=== PATIENT | female | born 1990 | race Hispanic/Latino ===

== ENCOUNTER 2016-06-06 21:49 | Emergency (ER) | payer OTHER ==
[2016-06-06 21:57] VITALS: BP 108/78; PULSE 101; O2SAT 97
[2016-06-06] MEDS ORDERED: Albuterol-Ipratropium 3 mL Inhalation Solution NEB ONE (23:50)
[2016-06-06] MEDS ORDERED: predniSONE 20 mg Tablet PO ONE (23:50)
[2016-06-07 00:02] VITALS: PULSE 64; RESP 22; O2SAT 99
[2016-06-07 00:21] LABS: BASOPHILS % (AUTO) 0.2 % (0-3); EOSINOPHILS % (AUTO) 1.6 % (0-5); MONOCYTES % (AUTO) 6.9 % (4-12); Mean Corpuscular Hemoglobin 28.2 pg (27.0-35.0); Mean Corpuscular Volume 84.8 fL (81-100); NEUTROPHILS % (AUTO) 75.3 % (40-74); Platelet Count 242 bil/L (150-400)
--- NOTE | 2016-06-07 00:32 | ED.REPORT ---
HPI-URI / Cough / Cold Date of Service Jun 07, 2016 ED Provider: Jon Wylie DO Healthy 25-year-old female presents to the emergency department for evaluation of cough. Evidently she has had an incessant cough for the past week. The cough happens throughout the day but it seems a more severe at nighttime when she lies down flat. The cough has been dry however she is now producing sputum. She does not have a history of pulmonary emboli tuberculosis or pneumonia. Nursing Notes Stated Complaint: COUGH/FEELS CONGESTED Chief Complaint: Respiratory Complaints Nursing Notes Reviewed: Yes Allergies: Coded Allergies: No Known Allergies (Verified Allergy, Unknown, 06/08/15) No Active Prescriptions or Reported Meds General Time Seen by MD: 23:10 Chief Complaint Cough, non-productive Hx Obtained From: Patient Arrived By: Walk-in Onset Occurred: 5 days ago Symptom Duration: Since onset Location: : Chest Quality: Heaviness Radiation: Radiation present (Bilateral arms) Severity: Current: Moderate Severity: Maximum: Moderate Associated with: Reports: Fever, Denies: Shortness of breath Exacerbated by: Coughing Pertinent Negative: Relieved by nothing Context: Immunization Status General: Unknown Recent Healthcare: No recent doctor visit Past Medical History Past Medical History None reported Past Surgical History None reported Smoking History Never Smoker Ambulatory Status Independent Review of Systems Constitutional: Reports: Fever (Intermittent) Respiratory: Reports: Non-productive cough, Denies: Hemoptysis, Shortness of breath GI: Reports: Vomiting (Posttussive) Complete sys rev & neg: except as marked. Cardiovascular: Denies: Chest pain, Dyspnea on exertion, Syncope Female: Reports: Dysuria, Urinary frequency Musculoskeletal: Reports: Extremity pain ("Heaviness" bilaterally) Physical Exam Initial Vital Signs Vital Signs (First) Date Time Temp Pulse Resp B/P Pulse Ox O2 Delivery O2 Flow Rate FiO2 06/06/16 21:57 36.2 101 108/78 97 Room Air 06/07/16 00:02 22 Initial VS: Reviewed Head / Eyes: Atraumatic, Normocephalic Skin: Warm, Dry, No cyanosis Neurologic: Alert, Oriented, Nonfocal Psychiatric: Mood/affect normal, Behavior normal, Normal thought content General/Constitutional: Awake, Alert, No acute distress Respiratory / Chest: No respiratory distress Wheezing / Retractions: Positive: Wheezing expiratory (Faint, right base) Frequent cough Neck: Supple, Full range of motion, No JVD Cardiovascular: Heart rate NL, Regular rhythm, Heart sounds NL, No gallop, No murmurs No S3 or S4 Abdomen: Atraumatic Gravid Uterus Lower Extremity / Pelvis / MS: Non-tender, Neurologic intact, Vascular intact, No edema Interpretation & Diagnostics Lab Results Interpretation Result Diagram: 06/07/16 0008 06/07/16 0008 Test 06/07/16 00:08 06/07/16 01:27 White Blood Count 11.5th/mm3 (3.8-10.1) Red Blood Count 4.01mil/mm3 (3.90-5.20) Hemoglobin 11.3g/dL (12.0-15.6) Hematocrit 34.0% (35.0-46.0) Mean Corpuscular Volume 84.8fL (81-100) Mean Corpuscular Hemoglobin 28.2pg (27.0-35.0) Mean Corpuscular Hemoglobin Concent 33.2% (32.0-37.0) Red Cell Distribution Width 12.9% (12.3-15.4) Platelet Count 242bil/L (150-400) Neutrophils (%) (Auto) 75.3% (40-74) Lymphocytes (%) (Auto) 15.7% (14-46) Monocytes (%) (Auto) 6.9% (4-12) Eosinophils (%) (Auto) 1.6% (0-5) Basophils (%) (Auto) 0.2% (0-3) D-Dimer 0.9mg/L (<0.50) Sodium Level 138mEq/L (134-144) Potassium Level 3.5mEq/L (3.5-5.2) Chloride Level 102mEq/L (97-108) Carbon Dioxide Level 21mmol/L (18-29) Blood Urea Nitrogen 8mg/dL (6-20) Creatinine 0.35mg/dL (0.57-1.00) Estimat Glomerular Filtration Rate 325mL/min (>59) Glucose Level 99mg/dL (60-99) Calcium Level 9.1mg/dL (8.5-10.1) Total Bilirubin 0.3mg/dL (0.0-1.2) Aspartate Amino Transf (AST/SGOT) 159U/L (0-50) Alanine Aminotransferase (ALT/SGPT) 339U/L (0-32) Alkaline Phosphatase 194U/L (25-150) Troponin T 0.010ug/L (0.0-0.011) Pro-B-Type Natriuretic Peptide 26.91pg/mL (0-130) Total Protein 7.1g/dL (6.4-8.4) Albumin 3.5g/dL (3.4-5.0) Hold Pfeiffer Top Tube Received (Received) Urine Color Straw (YELLOW) Urine Appearance Clear (CLEAR,HAZY) Urine pH 6.5 (5.0-8.0) Urine Specific [place] 1.005 (1.003-1.035) Urine Protein Negativemg/dL (NEG,TRACE) Urine Glucose (UA) Negativemg/dL (NEGATIVE) Urine Ketones Negativemg/dL (NEGATIVE) Urine Occult Blood Negative (NEGATIVE) Urine Nitrite Negative (NEGATIVE) Urine Bilirubin Negative (NEGATIVE) Urine Urobilinogen Normalmg/dL (NORMAL) Urine Leukocyte Esterase Trace (NEGATIVE) Urine RBC 0-2/hpf (0-2) Urine WBC 0-5/hpf (0-5) Urine Epithelial Cells Occasional/hpf (NONE-MOD) Urine Crystals None seen (NONE SEEN) Urine Bacteria None/hpf (NONE-FEW) Urine Hyaline Casts None/lpf (NONE) Urine Granular Casts None seen (NONE SEEN) Urine Waxy Casts None seen (NONE SEEN) Urine Red Blood Cell Casts None seen (NONE SEEN) Urine White Blood Cell Casts None seen (NONE SEEN) Urine Mucus None seen (None Seen) Urine Trichomonas None seen (NONE SEEN) Urine Yeast None (NONE SEEN) Urine Culture Reflexed Indicated ECG Interpretation ECG Interpretation: Sinus rhythm rate 75 Time: 23:58 Interpreted by: ED physician Re-Eval/Medical Decision Med Decision/Clinical Course 25-year-old female who was in the third semester presents with incessant cough and bronchospasm. The cough is worse at nighttime. The cough is worse and she lies down. She is found to have frequent cough in the ED. She also had a wheeze in the right lung. She was medicated with a DuoNeb. She did cough with a little streak of blood less than a drop. Otherwise she looked great and the cough resolved dramatically with the DuoNeb. Her d-dimer was normal for third trimester patient. She had no signs of DVT. She actually met pulmonary emboli rule out criteria. She is not tachypneic. Her heart rate was 88. She has no signs of DVT. She had no chest pain whatsoever. I do not feel that exposing her to the chest CT was indicated. I consulted with the bow maker custom drone pilot and he concurs. We will place her on bronchodilators and prednisone. She started producing yellow sputum so therefore we will add Z-Dwayne. She is to follow-up on Saturday. She is told to come back read which she ANY chest pain or shortness of breath. He does have a moderate transaminitis. I did a bedside ultrasound that showed a normal gallbladder. Looks like fatty infiltration. The plumber gasfitter can follow-up with this as well. Re-Evaluation/Progress #1: Time of Eval: 00:22 Re-Evaluation/Progress Note: The patient is now seeing streaks of blood in her sputum. Re-Evaluation/Progress #2: Time of Eval: 01:13 Patient Status: Condition improved Evaluation: Lungs clear Re-Evaluation/Progress Note: Patient feels much better after Albuterol treatment. She is no longer coughing. Re-Evaluation/Progress #3: Time of Eval: 01:30 Patient Status: Condition improved Re-Evaluation/Progress Note: Discussed with patient lab results, diagnosis, consult with Dr. Muniz, and plan for discharge. Follow-up and return to the ER instructions given. Patient agrees with plan for care and all questions were addressed. Consultation : Referral / Consult Name: Aristeo Muniz MD Call Returned at: 01:20 Grease Buffer: Will see in office, Agrees with eval, Agrees with plan Note: WILDLIFE PROTECTOR: Discussed patient's case. Dr. Muniz will see patient on Saturday. Counseled Regarding: Diagnosis, Lab results, Need for follow-up, When/why to return to ED Discharge & Departure Impression: Primary Impression: Acute bronchitis Bronchitis organism: unspecified organism Qualified Code: J20.9 - Acute bronchitis, unspecified Additional Impression: Bronchospasm Disposition: Home Discharge Condition All VS Reviewed: Yes Condition: Improved Patient Instructions: Acute Bronchitis (ED) Additional Instructions: Based on history and physical examination you have bronchitis with bronchospasm. The Zithromax and prednisone should take care of this. Zithromax daily for 4 days. Prednisone daily for 2 more days. Use the albuterol as instructed. 2 puffs every 2-3 hours as needed for cough and wheeze. The laboratory work shows that you have elevated liver enzymes. The ultrasound does not show any evidence of gallstones. I spoke with Dr. Peterson and he would like to see you in the office on Saturday. Call tomorrow morning for follow-up appointment. Return here immediately if you develop chest pain, shortness of breath or if you cough up any blood or have any new or worsening symptoms. GOOGLE TRANSLATE------ Sobre la base de la historia y el examen fsico que tiene bronquitis con broncoespasmo. El Zithromax y la prednisona deben ocuparse de esto. Zithromax diariamente lisa 4 tripp. Prednisone diariamente lisa 2 tripp ms. Use el albuterol segn las instrucciones. 2 inhalaciones cada 2-3 horas segn sea necesario para tos y sibilancias. El trabajo de laboratorio muestra que usted tiene enzimas hepticas elevadas. El ultrasonido no muestra ninguna evidencia de clculos biliares. Habl con el Dr. Peterson y evan lloyd en la oficina el viernes. Llame maana por la maana para izabela juve de seguimiento. Vuelva aqu inmediatamente si usted desarrolla dolor en el pecho, dificultad para respirar o si siente tos con micaela o presenta sntomas nuevos o que Referrals: Sal Maurice MD (PCP) Aristeo Muniz MDibbilly Attestation Portions of this note were transcribed by Marilou Thakkar. I, Dr. Wylie, personally performed the history, physical exam, and medical decision-making; I reviewed and confirmed the accuracy of the information in the transcribed note. Signed by: Aleah Guerra, 06/07/2016, 02:30 copies to: Aristeo Muniz MD; Sal Maurice MD, Todd P DO Jun 07, 2016 00:32 MARILOU THAKKAR Jun 07, 2016 00:45
[2016-06-07 00:57] LABS: TROPONIN T 0.01 ug/L (0.0-0.011)
[2016-06-07] MEDS ORDERED: _Albuterol-HFA 60 Puff Inhaler INHALATION PRN (01:15)
[2016-06-07 01:46] VITALS: PULSE 98; RESP 16; O2SAT 99
[2016-06-07 01:58] LABS: APPEARANCE,URINE CLEAR (CLEAR,HAZY); COLOR,URINE STRAW (YELLOW); OCCULT BLOOD,URINE NEGATIVE (NEGATIVE); PH,URINE 6.5 (5.0-8.0); UROBILINOGEN,URINE NORMAL (NORMAL)
== END 2016-06-07 01:47 | disposition home or self-care (01) ==
LOC: SED 21:49
DX: O99.513 Diseases of the respiratory system complicating pregnancy, third trimester (principal); J20.9 Acute bronchitis, unspecified; Z3A.29 29 weeks gestation of pregnancy
CPT/HCPCS: 36415; 80053; 81000; 83880; 84484; 85025; 85379; 87086; 87088; 93005; 94664; 99285; J7620

== ENCOUNTER 2016-08-02 00:06 | Inpatient (IN) | payer OTHER ==
[~2016-08-02] VITALS: Ht 152.4 cm; Wt 80.3 kg
[2016-08-02] MEDS ORDERED: diphenhydrAMINE 50 mg Capsule PO PRN (07:20)
[2016-08-02] MEDS ORDERED: Oxytocin 30 Units/500 mL LR 30 UNITS in IV Premix 1 EACH IV PRN (07:20)
[2016-08-02] MEDS ORDERED: fentaNYL-PF 50 mCg/mL 2 mL Inj IVPUSH PRN (07:20)
[2016-08-02] MEDS ORDERED: Carboprost 250 mCg/mL Inj IM PRN (07:20)
[2016-08-02] MEDS ORDERED: Hemorrhage Kit, Post Partum XX ONE (07:20)
[2016-08-02] MEDS ORDERED: Sodium Chloride LOK Flush 10 mL Syringe IVFLUSH PRN (07:20)
[2016-08-02] MEDS ORDERED: Methylergonovine 0.2 mg/mL Inj IM PRN (07:20)
[2016-08-02] MEDS ORDERED: Penicillin G K Inj 5,000,000 UNITS in Dextrose 5% Minibag Plus 100 ML IV ONE (07:20)
[2016-08-02] MEDS ORDERED: Ondansetron 2 mg/mL 2 mL Inj IVPUSH PRN (07:20)
[2016-08-02] MEDS ORDERED: Oxytocin 10 Unit/mL Inj IM PRN (07:20)
[2016-08-02] MEDS ORDERED: Misoprostol 25 mCg/0.25 Tablet VAGINAL SCH (08:25)
--- NOTE | 2016-08-02 08:53 | HP ---
[address] [address] HISTORY AND PHYSICAL PATIENT: CHUCK ROSE : 1990 MR#: [id number] ADMIT: 08/02/2016 JOB ID: [id number] IDENTIFYING DATA/CHIEF COMPLAINT: The patient is a 25-year-old, G 4, P 2, with 37 and 0/7 weeks presents for induction for cholestasis. HISTORY OF PRESENT ILLNESS: The patient has been well except for elevated bile acids and itching (itching has been well controlled on Ursodiol). She has been seen at the [facility] and their recommendation was to induce, at 37 and 0/7 weeks. She has been followed regularly with NSTs, has done well. No evidence of growth restriction on ultrasound. Dates are based on LMP consistent with a six week crown-rump length. Current : 1. Cholestasis. Interestingly, the patient presented with elevated LFTs during an upper respiratory illness at around 25 weeks. The LFTs were drawn incidentally during her ED evaluation for URI, were quite significantly elevated into the 300s. She developed significant itching at this time and was started on ursodiol based on her own history and family history. Initially, she had normal bile acids. Most recently, three weeks ago, she had elevated bile acids and LFTs have now normalized. The consensus is that her initial LFT elevations (even though they were associated with itching) were likely from a viral syndrome, though she does now have cholestasis as evidenced by subsequent bile acid elevation. 2. As noted above, she has had regular NSTs, also had ultrasound done July 24, 2016 which showed good growth, infant in the 34th percentile. She has had normal pressures throughout . Labs show blood type A positive. RPR nonreactive. Rubella immune. Hepatitis B surface antigen negative. HIV negative. Gonorrhea/ chlamydia negative. Quad screen results are not known. Her Glucola was okay. She is GBS positive. PREVIOUS PREGNANCIES: Two vaginal deliveries, both spontaneous, first one in 2009 at term. weight 6 pounds 11 ounces, boy. Second delivery 2010 (patient was treated for cholestasis during this , though went into spontaneous labor at right around 37 weeks. Delivery of baby girl, weight 5 pounds 13 ounces. No complications. Third was ectopic 2015, treated medically. PAST MEDICAL AND SURGICAL HISTORY: Noncontributory. No history of asthma, blood pressure problems or bleeding problems. No surgeries. FAMILY HISTORY: Significant for cholestasis and mother, also one of her sisters. Of note, her sister lost a baby to cholestasis at around 34-1/2 weeks just last year. SOCIAL: The patient does not smoke. No alcohol use. No drug use. Has supportive family, involved father of baby. I have no documentation of any intimate partner violence in the outpatient chart. OBJECTIVE: Her vital signs are stable. She is in no acute distress. Pleasant, cooperative. Cardiovascular: Regular rate and rhythm. S1, S2. No murmurs, gallops or rubs. Lungs clear to auscultation bilaterally. No crackles, rhonchi , wheezes. Abdomen is soft, nontender. She is gravid with estimated weight of 6 to 6-1/2 pounds (but closer to 6 pounds). Vertex (confirmed with ultrasound). Cervical examination: A 2 cm posterior, medium consistency, 50% effaced, -3 station, though the head is engaged in the pelvis. Lower extremities are without edema. strip shows a baseline in the 120s-130s with accels, no decels. Moderate variability present. Category one strip. ASSESSMENT AND PLAN: A 25-year-old G 4, P 2 at 37 and 0/7 weeks with cholestasis. She will need some cervical ripening. We will do that with Cytotec, though we will get a first hour of penicillin prior to that to decrease the unlikely risk of delivering rapidly with Cytotec alone. The patient has been counseled extensively on the risks and benefits as well as alternatives for induction and consent has been obtained verbally and in writing. Anticipate vaginal delivery. MTDD
[2016-08-02 08:57] LABS: Mean Corpuscular Hemoglobin 27.4 pg (27.0-35.0); Mean Corpuscular Volume 84.5 fL (81-100)
[2016-08-02] MEDS: Lactated Ringer's 1,000 ML IV SCH ×3 (09:23→21:06)
[2016-08-02] MEDS: Penicillin G K Inj 3,000,000 UNITS in IV Premix 1 EACH IV SCH ×3 (14:32→22:12)
[2016-08-02] MEDS: Lactated Ringer's 1,000 ML IV PRN ×2 (21:06→21:07)
[2016-08-02] MEDS ORDERED: Promethazine 50 mg/mL Inj IM PRN (23:40)
[2016-08-03] MEDS ORDERED: Lactated Ringer's 1,000 ML IV SCH (01:34)
[2016-08-03] MEDS ORDERED: Oxytocin 30 Units/500 mL LR 30 UNITS in IV Premix 1 EACH IV PRN (01:35)
[2016-08-03] MEDS ORDERED: Hemorrhage Kit, Post Partum XX ONE (01:35)
[2016-08-03] MEDS ORDERED: Oxytocin 10 Unit/mL Inj IM PRN (01:35)
[2016-08-03] MEDS ORDERED: LANOlin HPA 7 Gm Ointment TOPICAL PRN (01:35)
[2016-08-03] MEDS ORDERED: Methylergonovine 0.2 mg/mL Inj IM PRN (01:35)
[2016-08-03] MEDS ORDERED: Carboprost 250 mCg/mL Inj IM PRN (01:35)
[2016-08-03] MEDS ORDERED: Benzocaine (Dermoplast) 20% 60 Gm Spray TOPICAL PRN (01:35)
--- NOTE | 2016-08-03 02:07 | OP ---
[address] [address] OPERATIVE REPORT PATIENT: CHUCK ROSE : 1990 MR#: [id number] ADMIT: 08/02/2016 JOB ID: [id number] DATE OF SURGERY: SURGEON: PREOPERATIVE DIAGNOSIS(ES): POSTOPERATIVE DIAGNOSIS(ES): DELIVERY NOTE: For details of admission, please see H and P by this provider. Stage 1: The patient was induced at 37 and 0/7 weeks for indication of cholestasis. Initial cervical ripening with Cytotec, then moved to Pitocin. Patient tolerated well, with a category 1 strip throughout the first stage. The patient did not require medication for pain control. Patient progressing slowly in latent phase of labor 3 to 3.5 cm over approximately first eight hours of Pitocin. In addition, she received multiple doses of penicillin, at least three, for GBS positive status. Given the lack of progression, Pitocin was turned off with idea of allowing patient to rest overnight. Patient delivered approximately 1 hour later, going from 3.5-4 cm to complete in less than 20 minutes. Stage 2: Total duration five minutes. Patient noted to have increased pelvic pressure by nursing, she was then noted to have a bulging bag. Provider was called, patient delivered five minutes later, with provider arriving within approximately 11-12 minutes of the initial call. Infant delivered in caul and after delayed cord cramping (per nursing), patient's cord was clamped and cut. Stage 3: Total duration approximately 15 minutes. Pitocin restarted upon arrival of provider. Cord blood was obtained. With gentle cord pulling and countertraction (Lubin maneuver), placenta delivered in Schultze presentation, with minimal bleeding. Swept for clots. Of note, patient did not have any perineal tears, however, the delivery appeared to have unroofed a previously asymptomatic perineal cyst approximately 2 cm size, which was at least 2/3 exposed with no overlying epidermis after the delivery. Discussed with patient, including likelihood that this would have trouble healing without removal given the large cutaneous defect overlying it. Decision made to remove cyst. Area prepped antiseptically. Anesthetized with 15 cc of 1% lidocaine. Blunt dissection and gentle traction used to remove cyst and second cyst component adjacent to it (that one less than about 4 mm). The smaller cyst contents were spilled, though that area was cleaned. Subsequent to that, the larger cyst was removed intact. Cyst contents appeared consistent with typical sebaceous cyst. Cyst specimen sent for pathology. Bed of cyst site was inspected, there was no residual cyst. Bed is closed with 3-0 Vicryl with good tissue approximation and hemostasis. Patient tolerated that portion of the procedure well. Gauze count correct at the end of the procedure, also EBL 150 cc (delivery and cyst removal). and mother both doing well at time of this dictation. [facility]
[2016-08-03] MEDS: Witch Hazel-Glycerin Pads TOPICAL PRN (03:04)
[2016-08-03] MEDS: HYDROcodone-APAP 5-325 mg Tablet PO PRN ×2 (11:48→21:45)
[2016-08-04 07:32] LABS: Mean Corpuscular Hemoglobin 27.5 pg (27.0-35.0); Mean Corpuscular Volume 87.6 fL (81-100)
[2016-08-04] MEDS: Witch Hazel-Glycerin Pads TOPICAL PRN (11:22)
[2016-08-04] MEDS: HYDROcodone-APAP 5-325 mg Tablet PO PRN (11:51)
--- NOTE | 2016-08-04 12:55 | PCM.DC.OB ---
Obstetrical Discharge Summary Date of Service Aug 04, 2016 Date of hospital admission Aug 02, 2016 at 07:52 Date of Discharge: Aug 04, 2016 Providers Admitting Physician: Francisco J Sood MD Primary Care Physician: Francisco J Sood MD Attending Physician: Francisco J Sood MD Diagnosis at Time of Discharge Normal vaginal delivery at term; cholestasis requiring induction of labor at 37 wk gestational age; GBS pos, treated. Problems: Brief History and Physical: see H&P and delivery notes for details; pt was admitted on 08/02/16 at 37 wk gestational age for induction of labor due to cholestasis; she was treated with penicillin for GBS pos status. Normal vaginal delivery yesterday morning, and did well since. Itching due to cholestasis has resolved. Hospital Course: see H&P and delivery notes for details; pt was admitted on 08/02/16 at 37 wk gestational age for induction of labor due to cholestasis; she was treated with penicillin for GBS pos status. Normal vaginal delivery yesterday morning, and did well since. No problem voiding, normal lochia, appropriate pain. Itching due to cholestasis has resolved. No Active Prescriptions or Reported Meds Discharge Medications: Ibuprofen 600 mg q 6 hr prn pain; Colace 100 mg bid prn constipation; ferrous sulfate 325 mg daily. Disposition home Follow-up plan f/u with Dr. Sood at jun in 4 to 6 wk, sooner as needed. Discharge Diet: Heart Healthy Discharge Activity-General: Pelvic Rest for 6 weeks Berna Hardy MD Aug 04, 2016 12:55
--- NOTE | 2016-08-04 13:02 | PCM.DIOB ---
Obstetrical Disch Instruction Date of Service: Aug 04, 2016 Dates of Hospitalization Date of Hospital Admission Aug 02, 2016 at 07:52 Providers Admitting Physician: Francisco J Sood MD Primary Care Physician: Francisco J Sood MD Attending Physician: Francisco J Sood MD Discharge Diagnosis Discharge Diagnosis Normal vaginal delivery after induction of labor at term; cholestasis resolved; treated GBS pos status. Problems: Diet Discharge Diet: Heart Healthy Activity Discharge Activity-General: Pelvic Rest for 6 weeks Dressing and Incisional Care Hygiene: May shower Follow Up Plan Follow Up Plan f/u with Dr. Sood at [facility] in 4 to 6 wk for check, sooner as needed. Call your provider for: Fever or Chills, Shortness of breath, Heavy vaginal bleeding, Heavy bleeding, Epigastric pain, Excessive constipation, Vaginal discomfort, Red painful breasts Berna Hardy MD Aug 04, 2016 13:02
--- NOTE | 2016-08-04 13:05 | PCM.PNOBPP ---
Subjective Date of Service Aug 04, 2016 Post : Spontaneous Vaginal Delivery Lochia: Normal Pain Management: PO pain meds Group B Strep Results: Positive Blood Type: A RH Type: Positive Labs Laboratory Tests 08/04/16 07:00: White Blood Count 8.6, Red Blood Count 3.56, Hemoglobin 9.8, Hematocrit 31.2, Mean Corpuscular Volume 87.6, Mean Corpuscular Hemoglobin 27.5, Mean Corpuscular Hemoglobin Concent 31.4, Red Cell Distribution Width 14.6, Platelet Count 175 Exam Vital Signs Vital Signs: VS reviewed, stable Exam Abdomen: Fundus firm : Voiding without difficulty Extremities: No cords, Normal pulses Lungs: Clear to Auscultation Heart: Exam Unremarkable, Regular Rate/Rhythm, Normal S1, Normal S2, No Murmurs /Rubs/Gallops General: Alert, Oriented X3, Cooperative, No Acute Distress OB Post Assessment/Plan Assessment doing well on day; anticipate going home with today. Pain Evaluation: Adequate Pain Control Post plan: Continue routine post care Berna Hardy MD Aug 04, 2016 13:05
[2016-08-04 13:08] VITALS: BP 108/59; PULSE 81; RESP 16
--- NOTE | 2016-08-06 14:09 | PATH ---
SURGICAL PATHOLOGY Attending Physician:Francisco J Sood MD CASE STATUS: Signed Out PATIENT NAME: MAL ROSE PID: [id number] : 1990 DATE COLLECTED:08/03/2016 20:52 SPECIMEN: Perineum, biopsy CLINICAL HISTORY: 1). PERINEAL CYST FINAL DIAGNOSIS: 1.PERINEAL CYST: EPIDERMAL CYST, NEGATIVE FOR ATYPIA. ICD10 CODE L72.0 GROSS DESCRIPTION: Received in formalin, labeled with the patient' s name and "unspecified", is one capsule-like fragment of circular, clemens tissue measuring 1.8 x 1.4 x 1.4 cm. The surgical margin is inked blue. Upon sectioning, a thick, clemens, creamy substance fills a cystic space. Nurse Wound sections are submitted in one cassette. ([id number]) MICRO DESCRIPTION: See diagnosis. ICD-9 CODES: CPT CODES: 02448 Electronically Signed Out Donn Cortes MD [facility] [address], [place] [address] Technical component performed at [facility], [facility] [address], [place], [address]
== END 2016-08-04 14:47 | disposition home or self-care (01) | DRG 775 ==
LOC: FBC 07:52
PROVIDERS: ADMIT Family Medicine; ATTEND Family Medicine
PROC: 3E033VJ Introduction of Other Hormone into Peripheral Vein, Percutaneous Approach (ICD-10-PCS; principal; 2016-08-03)
PROC: 10E0XZZ Delivery of Products of Conception, External Approach (ICD-10-PCS; 2016-08-03)
PROC: 0H99XZX Drainage of Perineum Skin, External Approach, Diagnostic (ICD-10-PCS; 2016-08-03)
DX: O26.62 Liver and biliary tract disorders in childbirth (principal); K83.1 Obstruction of bile duct; L02.215 Cutaneous abscess of perineum; Z3A.37 37 weeks gestation of pregnancy; Z37.0 Single live birth; O99.824 Streptococcus B carrier state complicating childbirth